=== PATIENT | female | born 1955 | race Asian ===

== ENCOUNTER → 2017-12-16 09:04 | Outpatient (CLI) | payer OTHER, SELFPAY ==
--- NOTE | 2017-12-16 | DI.MG.S_ITS ---
BILATERAL DIGITAL SCREENING MAMMOGRAM 3D/2D WITH CAD: 12/16/2017 CLINICAL: Routine screening. Comparison is made to exams dated: 09/12/2015 mammogram, 06/18/2014 mammogram, and 01/10/2013 mammogram - [facility]. The tissue of both breasts is predominantly fatty. Current study was also evaluated with a Computer Aided Detection (CAD) system. There is possible architectural distortion in the right breast middle depth inner region seen on the craniocaudal view only, best seen on RCC tomosynthesis slice 37/83. No other significant masses, calcifications, or other findings are seen in either breast. IMPRESSION: INCOMPLETE: NEEDS ADDITIONAL IMAGING EVALUATION The possible architectural distortion in the right breast is indeterminate. Additional views with possible ultrasound are recommended. This exam was interpreted at Station ID: [id number]. NOTE: For mammograms, a report in lay terms will be sent to the patient. Approximately 15% of breast malignancies will not be visualized mammographically. In the management of a palpable breast mass, a negative mammogram must not discourage biopsy of a clinically suspicious lesion. Electronically Signed By: Olayinka Winter M.D. ecl/:12/16/2017 20:19:37 letter sent: Additional Imaging Needed ACR BI-RADS Category 0: Incomplete [id number]
== END ==
PROVIDERS: PCP Internal Medicine; Visit Provider Internal Medicine
DX: Z12.31 Encounter for screening mammogram for malignant neoplasm of breast (principal)
CPT/HCPCS: 77063; 77067

== ENCOUNTER → 2017-12-21 11:46 | Outpatient (CLI) | payer OTHER, SELFPAY ==
--- NOTE | 2017-12-21 | DI.US.S_ITS ---
PROCEDURE: US PELVIC COMPLETE INDICATIONS: PAIN TECHNIQUE: Real-time scanning was performed of the pelvic organs, with image documentation. Additional endovaginal scanning was necessary due to incomplete visualization of the adnexal and endometrial structures by transabdominal scanning. COMPARISON: None. FINDINGS: Transabdominal scanning: Limited scanning through the kidneys shows no hydronephrosis. No pathologic free abdominal or pelvic fluid. Endovaginal scanning: Uterus: Uterus is normal in size at 4.1 x 1.9 x 3.2 cm. The endometrium measures 2 mm in combined thickness. Ovaries: Not identified IMPRESSION: Sonographically normal uterus. The ovaries are not identified and cannot be evaluated. Dictated by: Harrison Blood M.D. on 12/21/2017 at 13:33 Approved by: Harrison Blood M.D. on 12/21/2017 at 13:34
== END ==
PROVIDERS: PCP Internal Medicine; Visit Provider Internal Medicine
DX: R10.2 Pelvic and perineal pain (principal)
CPT/HCPCS: 76830; 76856

== ENCOUNTER 2018-01-08 12:14 | Emergency (ER) | payer OTHER, SELFPAY ==
[2018-01-08 12:26] VITALS: BP 150/83; PULSE 91; RESP 16; TEMP 37.2; O2SAT 99; BMI 21.2
--- NOTE | 2018-01-08 12:42 | PC.NURSE ---
States was in [place] picking [place] yesterday and today has rash
[2018-01-08] MEDS: diphenhydrAMINE 50 MG/ML VIAL IM (13:51)
[2018-01-08] MEDS: predniSONE 20 MG TABLET PO (13:51)
--- NOTE | 2018-01-08 13:56 | ED_ITS ---
HPI - Allergic Reaction <REGINA Nur - Last Filed: 01/08/18 21:30> General Chief complaint: Allergic Reaction Stated complaint: RASH ALL OVER Time Seen by Provider: 01/08/18 13:34 Source: patient and family Mode of arrival: ambulatory Limitations: no limitations History of Present Illness HPI narrative: Patient presents with chief complaint of allergic reaction. She was picking some flour seeds and corn yesterday and then broke out in hives all over her body. She denies shortness of breath, trouble breathing, swelling of her mouth or throat. She denies any fevers, nausea vomiting or diarrhea. She denies any cough. She has not taken anything at home other than a topical anti- itch cream. She has never had this happen before. Related Data Previous Rx's Medication Instructions Recorded prednisone 20 mg PO DAILY #4 tab 01/08/18 Allergies Allergy/AdvReac Type Severity Reaction Status Date / Time No Known Drug Allergies Allergy Verified 01/08/18 12:26 Review of Systems <LAILA Nur - Last Filed: 01/08/18 21:30> Review of Systems GENERAL: Denies chills, fatigue, malaise, fever, sweats. HEENT: Denies sinus pain, ear pain, sore throat, difficulty swallowing, dizziness. RESPIRATORY: See HPI CARDIOVASCULAR: Denies chest pain, palpitations, orthopnea, edema, GASTROINTESTINAL: Denies nausea, vomiting, abdominal pain, diarrhea, constipation, melena. : Denies dysuria, frequency, incontinence, hematuria, urinary retention. MUSCULOSKELETAL: denies weakness, joint pain, or bony pain SKIN: See HPI NEUROLOGIC: Denies weakness, headache, numbness, change in speech, confusion, seizures, incoordination. PSYCHIATRIC: No concerning psychosocial issues. 12 point review of systems is negative except for those stated above Exam <LAILA Nur - Last Filed: 01/08/18 21:30> Narrative Exam Narrative: GENERAL: This is a well-nourished, well-developed patient, in no acute distress. HEAD: Atraumatic. Normocephalic. No temporal or scalp tenderness. EYES: Pupils equal round and reactive. Extraocular motions intact. No scleral icterus. No injection or drainage. ENT: Nose without bleeding, purulent drainage or septal hematoma. Throat without erythema, tonsillar hypertrophy or exudate. Uvula midline. Airway patent. No swelling of the throat or tongue. NECK: Trachea midline. No JVD or lymphadenopathy. Supple, nontender, no meningeal signs. CARDIOVASCULAR: Regular rate and rhythm without murmurs, gallops, or rubs. RESPIRATORY: Clear to auscultation. Breath sounds equal bilaterally. No wheezes , rales, or rhonchi. No cough on exam. No increased respiratory effort. No wanted to her dyspnea no tried potting GASTROINTESTINAL: Abdomen soft, non-tender, nondistended. No hepato-splenomegaly , or palpable masses. No guarding. EXTREMITIES: No clubbing, cyanosis, or edema. No joint tenderness, effusion, or edema noted. BACK: Nontender without deformity or crepitance. No flank tenderness. NEURO: AOx3. SKIN: uticaria noted over arms, trunk. Initial Vital Signs Initial Vital Signs: Vital Signs Temperature 99.0 F 01/08/18 12:26 Pulse Rate 91 H 01/08/18 12:26 Respiratory Rate 16 01/08/18 12:26 Blood Pressure 150/83 H 01/08/18 12:26 Pulse Oximetry 99 01/08/18 12:26 <Tracy Richards DO - Last Filed: 01/11/18 07:47> Initial Vital Signs Initial Vital Signs: Vital Signs Temperature 99.0 F 01/08/18 12:26 Pulse Rate 91 H 01/08/18 12:26 Respiratory Rate 16 01/08/18 12:26 Blood Pressure 150/83 H 01/08/18 12:26 Pulse Oximetry 99 01/08/18 12:26 Course <REGINA Nur - Last Filed: 01/08/18 21:30> Orders Ordered: Discontinued Medications Diphenhydramine HCl (Benadryl) 50 mg IM NOW ONE Stop: 01/08/18 13:42 Last Admin: 01/08/18 13:51 Dose: 50 mg Prednisone (Deltasone) 20 mg PO NOW ONE Stop: 01/08/18 13:42 Last Admin: 01/08/18 13:51 Dose: 20 mg Vital Signs - 8 hr 01/08/18 14:12 Pulse Rate 83 Respiratory Rate 16 Blood Pressure 147/86 H Pulse Oximetry 98 <DO Tang Jaimes Last Filed: 01/11/18 07:47> Orders Ordered: Discontinued Medications Diphenhydramine HCl (Benadryl) 50 mg IM NOW ONE Stop: 01/08/18 13:42 Last Admin: 01/08/18 13:51 Dose: 50 mg Prednisone (Deltasone) 20 mg PO NOW ONE Stop: 01/08/18 13:42 Last Admin: 01/08/18 13:51 Dose: 20 mg Vital Signs - 8 hr 01/08/18 14:12 Pulse Rate 83 Respiratory Rate 16 Blood Pressure 147/86 H Pulse Oximetry 98 MDM - Allergic Reaction <TAB NurP-BC - Last Filed: 01/08/18 21:30> Differential Diagnosis Differential diagnosis: Likely anaphylaxis, allergic reaction, angioedema, contact dermatitis, adverse reaction to drug, viral enanthem and urticaria MDM Narrative Medical decision making narrative: Patient presents with uticaria all over her body after being exposed to pollen and outdoors picking corn and sunflower seeds yesterday. She is experiencing no symptoms of anaphylaxis and is hemodynamically stable. Thus we gave her an antihistamine as well as a steroid here in the emergency department. I discussed continuing antihistamines and gave her a prescription of steroid to take home. I discussed at length signs and symptoms of an anaphylactic reaction including shortness of breath, swelling of the throat, and to come back immediately for any of those occur. I discussed monitoring for triggers and follow up with primary care if needed. Patient and have no questions or concerns upon discharge. Discharge Plan Departure Patient Disposition: Home Clinical Impression: Urticaria Discharge Date/Time: 01/08/18 14:13 Interventions: ED Discharge Assessment Last Done: 01/08/18 14:12 Instructions: DI for General Allergic Reactions Activity Restrictions/Additional Instructions: I am starting on a steroid to take for a few days to help with her hives. Please continue to take antihistamine such as Benadryl. Please monitor for your triggers of her hives. Follow up with primary care for new or worsening symptoms but come back to the emergency department for any acute concerns such as shortness of breath or swelling of the mouth. Please monitor for what triggers your hives. Prescriptions: New prednisone 20 mg tablet 20 mg PO DAILY Qty: 4 RF: 0 Referrals: Martha Grider MD [Primary Care Provider] - <Tracy Richards DO - Last Filed: 01/11/18 07:47> Cosign ED Attending Cosignature Attestation: I was immediately available in the department for consultation. This documentation has been reviewed and I agree with assessment and plan. Supervised by Tracy Richards DO
[2018-01-08 14:12] VITALS: BP 147/86; PULSE 83; RESP 16; O2SAT 98
== END 2018-01-08 14:13 | disposition home or self-care (01) ==
PROVIDERS: Emergency Provider Nurse Practitioner Family; PCP Internal Medicine
DX: L50.9 Urticaria, unspecified (principal)
CPT/HCPCS: 99282; 99283; J1200

== ENCOUNTER → 2018-01-13 09:08 | Outpatient (CLI) | payer OTHER, SELFPAY ==
--- NOTE | 2018-01-13 | DI.MG.S_ITS ---
UNILATERAL RIGHT DIGITAL DIAGNOSTIC MAMMOGRAM 3D/2D WITH ADDITIONAL VIEWS: 01/13/2018 CLINICAL: Additional evaluation requested from prior study. Comparison is made to exams dated: 12/16/2017 mammogram - [facility], 09/12/2015 mammogram, and 06/18/2014 mammogram - [facility]. The tissue of the right breast is predominantly fatty. The questionable architectural distortion in the right breast middle depth medial region seen on the craniocaudal view only is not well seen in additional views and has an unchanged appearance from multiple prior screening mammograms. No other significant masses or calcifications are seen in the breast. IMPRESSION: BENIGN The architectural distortion in the right breast represents normal fibroglandular tissue and is benign. There is no mammographic evidence of malignancy. A 1 year screening mammogram is recommended. This exam was interpreted at Station ID: [id number]. NOTE: For mammograms, a report in lay terms will be sent to the patient. Approximately 15% of breast malignancies will not be visualized mammographically. In the management of a palpable breast mass, a negative mammogram must not discourage biopsy of a clinically suspicious lesion. Electronically Signed By: Edwige dorado/:01/13/2018 09:49:00 letter sent: Normal Exam ACR BI-RADS Category 2: Benign Finding(s) [id number]
== END ==
PROVIDERS: PCP Internal Medicine; Visit Provider Internal Medicine
DX: R92.8 Other abnormal and inconclusive findings on diagnostic imaging of breast (principal)
CPT/HCPCS: 77065; G0279